=== PATIENT | male | born 1990 | race Caucasian/White ===

== ENCOUNTER 2018-11-08 20:09 | Emergency (ER) | payer OTHER ==
[~2018-11-08] VITALS: Ht 172.7 cm; Wt 93.6 kg
[~2018-11-08 20:09] MED LIST: NO HOME MEDICATIONS
[2018-11-08 20:15] VITALS: TEMP 97.9
[2018-11-08 22:45] VITALS: BP 116/69; PULSE 60
== END 2018-11-08 22:45 | disposition home or self-care (01) ==
LOC: COL.ER 20:09
DX: T15.02XA Foreign body in cornea, left eye, initial encounter (principal)

== ENCOUNTER → 2022-01-06 | Outpatient (CLI) | payer SELFPAY ==
[2022-01-06 10:41] LABS: BASO % 0.2 % (0.0-2.0); EOS # 0.1 K/mm3 (0.0-0.7); EOS % 0.8 % (0.0-4.0); GRAN # 7.3 K/mm3 (1.4-6.5); GRAN % 66.1 % (42.2-75.2); HEMATOCRIT 46.6 % (42.0-52.0); HEMOGLOBIN 15.7 g/dl (13.5-18.0); LYMPH # 2.8 K/mm3 (1.2-3.4); LYMPH % 24.8 % (20.0-51.0); MEAN CELL VOLUME 92 fl (80.0-100.0); MEAN CORPUSCULAR HEMOGLOBIN 31 pg (27-31); MEAN CORPUSCULAR HGB CONC 34 g/dl (33.0-37.0); MONO # 0.9 K/mm3 (0.1-0.6); MONO % 7.8 % (1.7-9.3); PLATELET COUNT 233 K/mm3 (130-400); RED BLOOD COUNT 5.08 M/mm3 (4.20-5.60); REDCELL DISTRIBUTION WIDTH-CV 12.7 % (11.5-14.5)
[2022-01-06 11:00] LABS: C-REACTIVE PROTEIN 7.64 mg/dL (0.00-0.50); URIC ACID 6.6 mg/dL (3.5-7.2)
[2022-01-06 11:16] LABS: ERYTHROCYTE SEDIMENTATION RATE 7 mm/hr (0-15)
== END ==
LOC: COL.LAB 10:10
PROVIDERS: Family Medicine
DX: M25.461 Effusion, right knee (principal)